=== PATIENT | male | born 1975 | race Caucasian/White ===

== ENCOUNTER 2016-07-22 08:06 | Emergency (ER) | payer SELFPAY ==
[~2016-07-22] VITALS: Ht 165.1 cm; Wt 77.0 kg
[2016-07-22 08:09] VITALS: Ht 165.1 cm; Wt 77.0 kg
[2016-07-22] MEDS ORDERED: LIDOCAINE 1%/EPI (MDV) 20 ML INJ SC ONE (08:30)
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
[2016-07-22] MEDS ORDERED: IBUP-1542 PO (10:39)
[2016-07-22 10:51] VITALS: BP 114/56; PULSE 65; RESP 19; TEMP 97.9
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
== END 2016-07-22 10:52 | disposition home or self-care (01) ==
LOC: E/R 08:06 → MERGE 08:06 → E/R 10:52
DX: S06.0X1A Concussion with loss of consciousness of 30 minutes or less, initial encounter (principal); V18.4XXA Pedal cycle driver injured in noncollision transport accident in traffic accident, initial encounter
CPT/HCPCS: 70450; 72125